=== PATIENT | male | born 1960 | race Caucasian/White ===

== ENCOUNTER → 2018-12-08 18:48 | Outpatient (CLI) | payer OTHER, SELFPAY ==
--- NOTE | 2018-12-08 | DI.RAD.S_ITS ---
PROCEDURE: XR LUMBAR SPINE 2-3V INDICATIONS: LOW BACK PAIN TECHNIQUE: 3 views of the lumbar spine were acquired. COMPARISON: None. FINDINGS: Bones: 5 [id number]-dkqvzbj vertebrae are present. There is normal bony alignment. No vertebral body compression fractures. There is mild disc space narrowing at L1-L2 and L2-L3. No suspicious bony lesions. There is moderate facet arthropathy at L4-L5 and L5-S1. Soft tissues: Overlying bowel gas pattern is normal. No suspicious soft tissue calcifications. IMPRESSION: 1. Mild degenerative disc disease at L1-L2 and L2-L3. 2. Moderate facet arthropathy at L4-L5 and L5-S1. Dictated by: Franki Marquez M.D. on 12/09/2018 at 9:43 Approved by: Franki Marquez M.D. on 12/09/2018 at 9:45
--- NOTE | 2018-12-08 18:53 | DI.RAD.S_ITS ---
PROCEDURE: XR THORACIC SPINE 3V INDICATIONS: LOW BACK PAIN TECHNIQUE: 3 views of the thoracic spine were acquired. COMPARISON: [facility], , XR LUMBAR SPINE 2-3V, 12/08/2018, 19:15. FINDINGS: Bones: No fractures or dislocations. Mild degenerative disc disease is present in the lower lumbar spine. No suspicious bony lesions. 12 pairs of ribs are noted, and appear intact where visualized. Soft tissues: No paravertebral stripe thickening. IMPRESSION: No fractures. Mild degenerative disc disease. Dictated by: Franki Marquez M.D. on 12/09/2018 at 9:41 Approved by: Franki Marquez M.D. on 12/09/2018 at 9:43
== END ==
PROVIDERS: Family Provider Family Medicine; PCP Family Medicine; Visit Provider Family Medicine
DX: M54.5 Low back pain (principal); M51.36 Other intervertebral disc degeneration, lumbar region; M47.816 Spondylosis without myelopathy or radiculopathy, lumbar region; M47.817 Spondylosis without myelopathy or radiculopathy, lumbosacral region
CPT/HCPCS: 72072; 72100

== ENCOUNTER 2018-12-31 21:13 | Emergency (ER) | payer OTHER, SELFPAY ==
[2018-12-31 21:24] VITALS: BP 147/101; PULSE 83; RESP 18; TEMP 36.6; O2SAT 100; BMI 23.7
--- NOTE | 2018-12-31 21:35 | ED.FALL ---
HPI - Fall General Chief Complaint: Fall Stated Complaint: LT ELBOW AND BACK PAIN S/P FALL Time Seen by Provider: 12/31/18 21:26 Source: patient Mode of arrival: ambulatory Limitations: no limitations History of Present Illness HPI Narrative: Patient is otherwise healthy 58-year-old male here for evaluation of an injury sustained from a fall. He states that he was at a job site it was walking down some stairs outside that were wet and covered with some [place]. He states that he slipped and fell back landing on his left side of his back and left elbow. He did not hit his head. No loss of consciousness. Was able to ambulate afterwards however he stated he did need to lay on the ground for period of time immediately after he fell. Did have some bleeding from his left elbow. Not on anticoagulation. Related Data Home Medications Medication Instructions Recorded Confirmed CA/CU/VIT A/VIT C/VIT E/ZINC 1 tab PO QDAY #0 11/11/12 (ICAPS AREDS~) Fish Oil 1,000 mg PO QDAY #0 11/11/12 ibuprofen 600 mg PO Q6HP #0 11/11/12 Allergies Allergy/AdvReac Type Severity Reaction Status Date / Time No Known Drug Allergies Allergy Verified 12/31/18 21:24 Review of Systems Constitutional Denies frequent falls and Denies headache(s) Eyes Denies change in vision ENT Ears, Nose, Mouth, and Throat: Denies headache(s) Cardiovascular Denies chest pain and Denies dyspnea Respiratory Denies dyspnea Gastrointestinal Gastrointestinal: Denies abdominal pain Genitourinary Denies dysuria and Reports flank pain (Left) Musculoskeletal Reports back pain and Reports arthralgias (Left elbow) Integumentary/Breasts Comments: Cut to the left elbow Neurologic Denies frequent falls and Denies headache(s) Hematologic/Lymphatic Denies easy bleeding and Denies easy bruising Exam Initial Vital Signs Initial Vital Signs: Vital Signs Temperature 97.9 F 12/31/18 21:24 Pulse Rate 83 12/31/18 21:24 Respiratory Rate 18 12/31/18 21:24 Blood Pressure 147/101 H 12/31/18 21:24 Pulse Oximetry 100 12/31/18 21:24 Const General: cooperative, comfortable, well developed and well groomed Orientation: alert, awake and oriented x3 HENMT Head: normal to inspection and normocephalic Chest Chest: No crepitus and No tenderness Resp Effort & Inspection: normal respiratory effort Auscultation: clear to auscultation bilaterally Cardio Rate: regular rate Rhythm: regular rhythm Pulses: radial pulses present on the left Back/Spine/Pelvis Cervical Spine: No cervical spinal tenderness Thoracic/Lumbar Spine: paraspinal tenderness (Left), No thoracic spinal tenderness and No lumbar spinal tenderness Skin Other: 2 cm laceration to the left elbow. 1 cm abrasion to the left elbow below that Neuro General: alert, awake and oriented x3 Cognition: normal cognition Speech: speech normal Gait: normal gait Motor: muscle tone normal throughout Sensory Exam: no sensory deficits noted Extrem General: capillary refill normal Other: Patient does have range of motion to the left elbow in pronation and supination however does have discomfort in the elbow with this. Left shoulder left 1st unremarkable Psych Appearance: grossly normal and well viborgt [facility] Medical History Patient denies medical problems (Acute) Social History lives independently: Yes Smoking Status: Never smoker Social History lives independently: Yes Smoking Status: Never smoker Procedures Laceration Repair Laceration 1: Site: upper extremity Side (If applicable): left Size (cm): 2 Description: linear and clean Depth: simple, single layer Local Anesthetic: lidocaine 1% Amount of anesthesia used (mL): 2 Pre-repair: wound explored, irrigated extensively and deep structures intact Skin layer closed with: nylon Size (cm): 4-0 Number of sutures: 2 Technique: simple, interrupted Scores GCS [place] coma scale eye opening: Spontaneous [place] coma scale verbal response: Orientated Lisette coma scale motor response: Obey commands Lisette coma scale total score: 15 Nexus Score for C-Spine Focal Neurologic deficit present: No Midline spinal tenderness present: No Altered level of conciousness present: No Intoxication present: No Distracting Injury Present: No Nexus Criteria for C-spine: 0 Course Orders Ordered: ED Orders 12/31/18 21:44 XR elbow LT min 3V Stat Vital Signs - 8 hr 12/31/18 21:24 12/31/18 22:35 Temperature 97.9 F Pulse Rate 83 70 Respiratory Rate 18 Blood Pressure 147/101 H 119/81 Pulse Oximetry 100 97 MDM - Fall Imaging Data Elbow x-ray: Attestation: I personally reviewed and interpreted this imaging study as follows: Radiologist's impression: [address] [address] XRay Report Signed Patient: Roamrio Patel WMR#: [id number] : 1Acct:[id number] Age/Sex: 58 / MDate of Service: 12/31/18 Loc: ED Accession Number: [id number] Procedure: XR elbow LT min 3V Ordering Provider: Dusty Oshea D.O. PROCEDURE: XR ELBOW LT MIN 3V INDICATIONS: Left elbow pain after fall TECHNIQUE: 3 views of the elbow were acquired. COMPARISON: None. FINDINGS: Bones: No fractures or dislocations. No suspicious bony lesions. Soft tissues: No elbow joint effusion. No suspicious soft tissue calcifications. IMPRESSION: No evidence acute bony abnormality of the left elbow Dictated by: Jared Wei M.D. on 12/31/2018 at 21:57 Approved by: Jared Wei M.D. on 12/31/2018 at 21:58 [facility] Narrative Medical decision making narrative: Laceration was closed as described above. Elbow x-ray is unremarkable. No neck tenderness. Not on anticoagulation. His lower back tenderness is paraspinal. Not midline. Is ambulatory. Will hold on further x-rays for now. Patient was given care instructions and return precautions. He expressed understanding and agreement with plan. Discharge Plan Departure Patient Disposition: Home Clinical Impression: Laceration, Abrasion of skin Back pain Qualifiers: Back pain location: low back pain Chronicity: acute Back pain laterality: left Sciatica presence: without sciatica Qualified Code(s): M54.5 - Low back pain Fall Qualifiers: Encounter type: initial encounter Qualified Code(s): W19.XXXA - Unspecified fall, initial encounter Discharge Date/Time: 12/31/18 22:36 Interventions: ED Discharge Assessment Last Done: 12/31/18 22:35 Instructions: DI for Laceration Repair Activity Restrictions/Additional Instructions: The stitches need to be removed in 7-10 days. You can shower like normal after 24 hours. You can take ibuprofen and Tylenol like we discussed. Return to the emergency department for any new or worsening symptoms Prescriptions: No Action CA/CU/VIT A/VIT C/VIT E/ZINC (ICAPS AREDS~) 1 tab PO QDAY Qty: 0 RF: 0 Fish Oil 1,000 mg PO QDAY Qty: 0 RF: 0 ibuprofen 600 MG tablet 600 mg PO Q6HP Qty: 0 RF: 0 Referrals: Silvio Portillo MD [Primary Care Provider] -
--- NOTE | 2018-12-31 21:44 | DI.RAD.S_ITS ---
PROCEDURE: XR ELBOW LT MIN 3V INDICATIONS: Left elbow pain after fall TECHNIQUE: 3 views of the elbow were acquired. COMPARISON: None. FINDINGS: Bones: No fractures or dislocations. No suspicious bony lesions. Soft tissues: No elbow joint effusion. No suspicious soft tissue calcifications. IMPRESSION: No evidence acute bony abnormality of the left elbow Dictated by: Jared Wei M.D. on 12/31/2018 at 21:57 Approved by: Jared Wei M.D. on 12/31/2018 at 21:58
[2018-12-31 22:35] VITALS: BP 119/81; PULSE 70; O2SAT 97
== END 2018-12-31 22:36 | disposition home or self-care (01) ==
PROVIDERS: Emergency Provider Emergency Medicine; Family Provider Family Medicine; PCP Family Medicine
DX: S51.012A Laceration without foreign body of left elbow, initial encounter (principal); M54.5 Low back pain; W01.198A Fall on same level from slipping, tripping and stumbling with subsequent striking against other object, initial encounter; Y99.0 Civilian activity done for income or pay
CPT/HCPCS: 12001; 73080; 99283

== ENCOUNTER → 2021-05-08 13:48 | Outpatient (CLI) | payer OTHER, SELFPAY ==
--- NOTE | 2021-05-08 | DI.RAD.S_ITS ---
PROCEDURE: XR SHOULDER LT MIN 2V INDICATIONS: LEFT SHOULDER PAIN TECHNIQUE: 3 views of the shoulder were acquired. COMPARISON: [facility], CR, XR SHOULDER MIN 2VW RT, 05/24/2015, 16:03. FINDINGS: Bones: No fractures or dislocations. No suspicious bony lesions. Visualized ribs appear intact. Periarticular osteophyte formation at the acromioclavicular and glenohumeral joints. Soft tissues: No suspicious soft tissue calcifications. IMPRESSION: Osteoarthritis. No acute fracture. No osseous lesion. If symptoms and/or clinical suspicion for pathology persist, further assessment with repeat, or advanced imaging (e.g., CT, MRI, or bone scan) may be helpful for further assessment. Dictated by: Camila García M.D. on 05/08/2021 at 15:46 Approved by: Camila García M.D. on 05/08/2021 at 15:47
== END ==
PROVIDERS: Family Provider Family Medicine; PCP Family Medicine; Referring Provider Family Medicine; Visit Provider Family Medicine
DX: M25.512 Pain in left shoulder (principal); M19.012 Primary osteoarthritis, left shoulder
CPT/HCPCS: 73030

== ENCOUNTER → 2022-05-30 13:49 | Outpatient (CLI) | payer OTHER, SELFPAY ==
--- NOTE | 2022-05-30 13:51 | DI.RAD.S_ITS ---
PROCEDURE: XR FOOT LT MIN 3V INDICATIONS: bilateral foot pain TECHNIQUE: 3 views of the foot were acquired. COMPARISON: None. FINDINGS: Bones: Myss-ef-yrzladlk hallux valgus is seen. Mild midfoot and forefoot joint osteoarthritic changes are noted most notably in 1st interphalangeal joint and 2nd through 5th DIP joints. No fractures or dislocations. No suspicious bony lesions. Soft tissues: No tibiotalar joint effusion. Achilles tendon appears normal. IMPRESSION: Bytx-ib-rjketirz hallux valgus and mild midfoot and forefoot joint osteoarthritis. No acute fracture or dislocation. Dictated by: Preston Pinto M.D. on 05/30/2022 at 16:32 Approved by: Preston Pinto M.D. on 05/30/2022 at 16:34
--- NOTE | 2022-05-30 13:51 | DI.RAD.S_ITS ---
PROCEDURE: XR FOOT RT MIN 3V INDICATIONS: bilateral foot pain TECHNIQUE: 3 views of the foot were acquired. COMPARISON: None. FINDINGS: Bones: Idwn-zi-jqnupcoi hallux valgus is seen. Mild midfoot and forefoot joint osteoarthritic changes are seen. Tiny plantar calcaneal enthesophyte is also noted. No fractures or dislocations. No suspicious bony lesions. Soft tissues: No tibiotalar joint effusion. Achilles tendon appears normal. IMPRESSION: Gwix-av-wduqczmx hallux valgus and mild midfoot and forefoot joint osteoarthritis. No fracture or dislocation. Tiny calcaneal enthesophyte. Dictated by: Preston Pinto M.D. on 05/30/2022 at 16:31 Approved by: Preston Pinto M.D. on 05/30/2022 at 16:32
== END ==
PROVIDERS: Family Provider Family Medicine; PCP Family Medicine; Referring Provider Family Medicine; Visit Provider Family Medicine
DX: M20.12 Hallux valgus (acquired), left foot (principal); M20.11 Hallux valgus (acquired), right foot; M19.072 Primary osteoarthritis, left ankle and foot; M19.071 Primary osteoarthritis, right ankle and foot; M79.671 Pain in right foot; M79.672 Pain in left foot
CPT/HCPCS: 73630